=== PATIENT | male | born 1955 | race Caucasian/White ===

== ENCOUNTER 2021-12-16 12:43 | Emergency (ER) | payer MEDICARE, SELFPAY ==
--- NOTE | ~2021-12-16 | CT_ITS ---
EXAMINATION: CT brain wo con DATE: 12/16/2021 12:53 INDICATION: Right-sided weakness and confusion. TECHNIQUE: Computed tomography (CT) of the head was performed without intravenous contrast. The dose- length product was 605.33 mGy-cm. Automated exposure control and iterative reconstruction technique w ere employed. COMPARISON: None FINDINGS: No acute intracranial hemorrhage, infarction, mass or mass effect. No ventriculomegaly or m idline shift. There are scattered mild periventricular and subcortical white matter changes, most lik ritesh related to small vessel ischemic disease (microangiopathy). Paranasal sinuses and mastoids are pn eumatized. No depressed skull fractures. IMPRESSION: 1. No acute intracranial abnormality. As per stroke protocol, I called these results to emergency room, discussed with Dr. Placido luevano MD at 12/16/2021 12:58 CDT. Reviewed, dictated and finalized at location B. IMPRESSION: 1. No acute intracranial abnormality. As per stroke protocol, I called these results to emergency room, discussed wit h Dr. Placido Mercado MD at 12/16/2021 12:58 CDT.
--- NOTE | ~2021-12-16 | CT_ITS ---
EXAMINATION: CTA brain DATE: 12/16/2021 14:03 INDICATION: Right hemiparesis. TECHNIQUE: Computed tomographic angiography (CTA) of the head was performed with 100 mL Omnipaque-350 intravenous contrast. Automated exposure control and iterative reconstruction technique were employe d. The dose-length product was 629.14 mGy-cm. Maximum intensity projection 3D reconstructions were c reated. Volume-rendered 3D reconstructions of the intracranial arteries were created by the technolog ist on a separate workstation. COMPARISON: Head CT 12/16/2021 FINDINGS: There is no intracranial hemorrhage, acute infarction, or abnormal intracranial mass lesion . The ventricles are normal in size. There is mucosal thickening in the paranasal sinuses. The orbits are normal. The mastoid air cells are normal. Left vertebral artery is dominant. There is no signifi cant stenosis of basilar artery. Left P1 posterior cerebral artery segment is absent, a normal varian t. The posterior communicating arteries are normal. There is focal severe stenosis of left P2 posteri or cerebral artery. There is no significant stenosis of the intracranial internal carotid arteries or anterior or middle cerebral arteries. Anterior communicating artery is normal. IMPRESSION: 1. Focal severe stenosis of left P2 posterior cerebral artery. Reviewed, dictated and finalized at location A.
--- NOTE | ~2021-12-16 | XR_ITS ---
EXAMINATION: XR chest 1V portable INDICATION: Right-sided TECHNIQUE: Portable AP chest at 1326 hours COMPARISON: None available FINDINGS: The lungs are free of acute opacities. No pleural effusion or pneumothorax. The heart size is normal. Median sternotomy wires and mediastinal surgical clips are seen, likely from prior coronar y artery bypass grafting. IMPRESSION: 1. No acute cardiopulmonary abnormality. Reviewed, dictated and finalized at location A.
[2021-12-16 12:44] VITALS: BP 202/100; PULSE 85; RESP 15; TEMP 36.8; O2SAT 96
[2021-12-16 12:52] LABS: Glucose Point of Care 264 mg/dl (65-105)
[2021-12-16 12:59] LABS: Basophils Absolute Auto 0.06 K/mm3 (0.00-0.10); Basophils Percent Auto 0.8 % (0.0-1.0); Eosinophils Absolute Auto 0.05 K/mm3 (0.02-0.50); Eosinophils Percent Auto 0.6 % (1.0-6.0); Hematocrit 42.9 % (37.0-46.0); Hemoglobin 15.1 g/dL (12.4-15.3); Immature Granulocyte Absolute 0.05 K/mm3 (0.00-0.00); Immature Granulocyte Percent A 0.6 % (0.0-0.0); Lymphocytes Absolute Auto 1.39 K/mm3 (1.10-4.50); Lymphocytes Percent Auto 18.1 % (18.0-42.0); Mean Corpuscular HGB Conc 35.2 g/dL (32.0-36.0); Mean Corpuscular Hemoglobin 31.2 pg (27.0-31.0); Mean Corpuscular Volume 88.6 fL (78.0-102.0); Mean Platelet Volume 9.3 fl (8.7-11.0); Monocytes Absolute Auto 0.57 K/mm3 (0.10-0.90); Monocytes Percent Auto 7.4 % (2.0-11.0); Neutrophils Absolute Auto 5.6 K/mm3 (1.7-7.2); Neutrophils Percent Auto 72.5 % (50.0-70.0); Platelet Count Result 235 K/mm3 (150-420); Red Blood Count 4.84 M/mm3 (4.70-6.10); Red Cell Distribution Width 11.9 % (11.6-14.4); White Blood Count 7.7 K/mm3 (4.8-10.8)
--- NOTE | 2021-12-16 13:06 | ECG_ITS ---
Measurements Intervals [place] Rate: 81 P: 56 OR: 197 QRS: 39 QRSD: 84 T: 209 QT: 365 QTc: 424 Interpretive Statements SINUS RHYTHM ST-T WAVE ABNORMALITY IN ANTEROLATERAL LEADS- CONSIDER ISCHEMIA BASELINE ARTIFACT- I, III, AVL, V1 ABNORMAL ECG NO PREVIOUS ECG AVAILABLE FOR COMPARISON Electronically Signed On 12-16-2021 13:31:48 CDT by Marcel Fernandez D.O.
[2021-12-16 13:07] LABS: Prothrombin Time 10.8 Seconds (9.50-12.10)
[2021-12-16] MEDS: niCARdipine 20 MG/200 ML 20 MG/200 ML BAG 50 MG IV CONT (13:13)
[2021-12-16] MEDS: SODIUM CHLORIDE 0.9% IV 1,000 ML 100 ML (13:15)
[2021-12-16 13:19] LABS: Alanine Aminotransferase 33 U/L (16-63); Albumin Level 3.4 g/dL (3.4-5.0); Alkaline Phosphatase 78 U/L (46-116); Anion Gap 6 mmol/L (8-16); Aspartate Amino Transferase 20 U/L (15-37); Bilirubin,Total 0.6 mg/dL (0.00-1.00); Blood Urea Nitrogen 10 mg/dL (7-18); Calcium 8.8 mg/dL (8.5-10.1); Carbon Dioxide 31 mmol/L (21-32); Chloride 98 mmol/L (98-108); Creatine Kinase 179 U/L (39-308); Estimated Glomerular Filt Rate > 60; Ethanol < 3 mg/dL (0-6); Glucose 275 mg/dL (70-99); Osmolality Calculated 289 mOsm/kg (285-295); Potassium 3.8 mmol/L (3.5-5.1); Sodium 135 mmol/L (136-145)
[2021-12-16 13:20] LABS: Troponin I 597.7 ng/L (0.00-60.4)
--- NOTE | 2021-12-16 14:51 | ED.NEUROSD ---
HPI - Neuro Symptoms/Deficit General Chief Complaint: Suspected CVA Stated Complaint: ambulance Time Seen by Provider: 12/16/21 12:49 Related Data Home Medications Medication Instructions Recorded Confirmed Unable to Obtain Home Medications 12/16/21 12/16/21 Allergies Allergy/AdvReac Type Severity Reaction Status Date / Time iv contrast Allergy Unknown Uncoded 12/16/21 14:21 Course Vital Signs Vital signs: Vital Signs Temperature 36.8 C 12/16/21 12:44 Pulse Rate 85 12/16/21 12:44 Respiratory Rate 15 12/16/21 12:44 Blood Pressure 202/100 H 12/16/21 12:44 Pulse Oximetry 96 12/16/21 12:44 Oxygen Delivery Room Air 12/16/21 12:44 Temperature 36.8 C 12/16/21 12:44 Pulse Rate 85 12/16/21 12:44 Respiratory Rate 15 12/16/21 12:44 Blood Pressure 202/100 H 12/16/21 12:44 Pulse Oximetry 96 12/16/21 12:44 Oxygen Delivery Room Air 12/16/21 12:44 MDM - Neuro Symptoms/Deficit Lab Data Result diagrams: 12/16/21 12:53 12/16/21 12:53 Labs: Lab Results 12/16/21 12/16/21 12/16/21 Range/Units 12:47 12:53 12:53 WBC 7.7 (4.8-10.8) K/mm3 RBC 4.84 (4.70-6.10) M/mm3 Hgb 15.1 (12.4-15.3) g/dL Hct 42.9 (37.0-46.0) % MCV 88.6 (78.0-102.0) fL MCH 31.2 H (27.0-31.0) pg MCHC 35.2 (32.0-36.0) g/dL RDW 11.9 (11.6-14.4) % Plt Count 235 (150-420) K/mm3 MPV 9.3 (8.7-11.0) fl Immature Gran % (Auto) 0.6 H (0.0-0.0) % Neut % (Auto) 72.5 H (50.0-70.0) % Lymph % (Auto) 18.1 (18.0-42.0) % [place] % (Auto) 7.4 (2.0-11.0) % Eos % (Auto) 0.6 L (1.0-6.0) % Baso % (Auto) 0.8 (0.0-1.0) % Lymph # (Auto) 1.39 (1.10-4.50) K/mm3 [place] # (Auto) 0.57 (0.10-0.90) K/mm3 Eos # (Auto) 0.05 (0.02-0.50) K/mm3 Baso # (Auto) 0.06 (0.00-0.10) K/mm3 Abs Immat Gran (auto) 0.05 H (0.00-0.00) K/mm3 Absolute Neuts (auto) 5.6 (1.7-7.2) K/mm3 Absolute Nucleated RBC 0.00 (0.00-0.00) K/mm3 Nucleated RBC % 0.0 (0-0.0) % PT (9.50-12.10) Seconds INR APTT (23.90-30.70) SEC Sodium 135 L (136-145) mmol/L Potassium 3.8 (3.5-5.1) mmol/L Chloride 98 (98-108) mmol/L Carbon Dioxide 31 (21-32) mmol/L Anion Gap 6 L (8-16) mmol/L BUN 10 (7-18) mg/dL Creatinine 0.85 (0.70-1.30) mg/dL Estim Creat Clear Calc Not Reportable Estimated GFR > 60 (59 - ) Glucose 275 H (70-99) mg/dL POC Capillary Glucose 264 H (65-105) mg/dl Calculated Osmolality 289 (285-295) mOsm/kg Calcium 8.8 (8.5-10.1) mg/dL Total Bilirubin 0.6 (0.00-1.00) mg/dL AST 20 (15-37) U/L ALT 33 (16-63) U/L Alkaline Phosphatase 78 (46-116) U/L Total Creatine Kinase 179 (39-308) U/L CK-MB (CK-2) 1.70 (0.00-5.00) ng/mL Troponin I 597.7 H* (0.00-60.4) ng/L Total Protein 7.0 (6.4-8.2) g/dL Albumin 3.4 (3.4-5.0) g/dL Ethyl Alcohol (0-6) mg/dL 12/16/21 12/16/21 Range/Units 12:53 12:53 WBC (4.8-10.8) K/mm3 RBC (4.70-6.10) M/mm3 Hgb (12.4-15.3) g/dL Hct (37.0-46.0) % MCV (78.0-102.0) fL MCH (27.0-31.0) pg MCHC (32.0-36.0) g/dL RDW (11.6-14.4) % Plt Count (150-420) K/mm3 MPV (8.7-11.0) fl Immature Gran % (Auto) (0.0-0.0) % Neut % (Auto) (50.0-70.0) % Lymph % (Auto) (18.0-42.0) % [place] % (Auto) (2.0-11.0) % Eos % (Auto) (1.0-6.0) % Baso % (Auto) (0.0-1.0) % Lymph # (Auto) (1.10-4.50) K/mm3 [place] # (Auto) (0.10-0.90) K/mm3 Eos # (Auto) (0.02-0.50) K/mm3 Baso # (Auto) (0.00-0.10) K/mm3 Abs Immat Gran (auto) (0.00-0.00) K/mm3 Absolute Neuts (auto) (1.7-7.2) K/mm3 Absolute Nucleated RBC (0.00-0.00) K/mm3 Nucleated RBC % (0-0.0) % PT 10.8 (9.50-12.10) Seconds INR 1.0 APTT 27.0 (23.90-30.70) SEC Sodium (136-145) mmol/L Potassium (3.5-5.1) mmol/L Chloride (98-108) mmol/L Carbon Dioxide (
--- NOTE | 2021-12-16 14:51 | ED.NEUROSD ---
HPI - Neuro Symptoms/Deficit General Chief Complaint: Suspected CVA Stated Complaint: ambulance Time Seen by Provider: 12/16/21 12:49 Source: patient and EMS Mode of arrival: EMS Limitations: language barrier History of Present Illness HPI Narrative: this is a 66-year-old gentleman that called family and stated that he was having slurred speech with right arm weakness and a right facial droop started about 11:00 a.m. in the morning, patient has a history of diabetes hypertension and CAD with 2 stents placed. Currently no chest pain no abdominal pain blood pressure was initially 239 systolic with no nausea vomiting. Timing confirmed by: family member Location: speech, right face, dysarthria and right arm Severity: severe Related Data Home Medications Medication Instructions Recorded Confirmed Unable to Obtain Home Medications 12/16/21 12/16/21 Allergies Allergy/AdvReac Type Severity Reaction Status Date / Time iv contrast Allergy Unknown Uncoded 12/16/21 14:21 Review of Systems Review of Systems: All systems reviewed & are unremarkable except as noted in HPI and below PMFSH Past Medical History Medical History Diabetes mellitus Exam Const: General: healthy appearing and ill appearing Limitations: altered mental status HENMT: Head: normal to inspection Face and sinus: normal facial exam Mouth: Yes Normal oral and palatal mucosa present Eyes: Conjunctivae: conjunctivae normal Pupils: Equal, round and reactive pupils present EOM: EOMs intact bilaterally Chest: Chest palpation & inspection: normal inspection of the chest Resp: Effort & Inspection: normal respiratory effort Auscultation: clear to auscultation bilaterally Cardio: Rate: regular rate Rhythm: regular rhythm GI: GI Palp: Yes Soft to palpation Auscultation: normal bowel sounds : General: Yes bladder normal to palpation Urinary Catheter: Urinary Catheter: patent and draining Back/Spine/Pelvis: Back: no CVA tenderness Skin: General skin exam: normal color Rashes: no rashes Wounds: no wounds Neuro: General: patient oriented x3 Speech: Abnormal speech present Extrem: General: normal to inspection and no clubbing, cyanosis or edema Psych: Mental Status: mental status grossly normal Affect: normal affect Course Course Emergency Course: patient with a [place] Stroke Scale with slurred speech and right facial droop and right arm weakness his NIH stroke scale as 6, the patient had initial blood pressure of 239 systolic started on nicardipine drip and currently blood pressure 180/80 patient also received tPA, patient had CTA performed which showed no focal severe stenosis of the left posterior cerebral artery. Patient had a CT scan when he 1st arrived which showed no acute hemorrhage. [facility] been called and acceptance to [facility] for stroke. Vital Signs Vital signs: Vital Signs Temperature 36.8 C 12/16/21 12:44 Pulse Rate 85 12/16/21 12:44 Respiratory Rate 15 12/16/21 12:44 Blood Pressure 202/100 H 12/16/21 12:44 Pulse Oximetry 96 12/16/21 12:44 Oxygen Delivery Room Air 12/16/21 12:44 Temperature 36.8 C 12/16/21 12:44 Pulse Rate 85 12/16/21 12:44 Respiratory Rate 15 12/16/21 12:44 Blood Pressure 202/100 H 12/16/21 12:44 Pulse Oximetry 96 12/16/21 12:44 Oxygen Delivery Room Air 12/16/21 12:44 Transfer Transportation: Air medical Transfer rationale: Further evaluation treatment from Neurology MDM - Neuro Symptoms/Deficit Lab Data Result diagrams: 12/16/21 12:53 12/16/21 12:53 Labs: Lab Results 12/16/21 12/16/21 12/16/21 Range/Units 12:47 12:53 12:53 WBC 7.7 (4.8-10.8) K/mm3 RBC 4.84 (4.70-6.10) M/mm3 Hgb 15.1 (12.4-15.3) g/dL Hct 42.9 (37.0-46.0) % MCV 88.6 (78.0-102.0) fL MCH 31.2 H (27.0-31.0) pg MCHC 35.2 (32.0-36.0)
[2021-12-16 14:55] VITALS: BP 175/85; PULSE 88; RESP 16; O2SAT 98
[2021-12-16 15:00] VITALS: BP 202/100; PULSE 85; RESP 15
== END 2021-12-16 15:05 | disposition short-term general hospital (02) ==
PROVIDERS: Emergency Provider Emergency Medicine
DX: I63.9 Cerebral infarction, unspecified (principal); E11.9 Type 2 diabetes mellitus without complications; I25.10 Atherosclerotic heart disease of native coronary artery without angina pectoris
CPT/HCPCS: 36415; 70450; 70496; 71045; 80053; 80307; 82550; 82553; 82948; 84484; 85025; 85610; 85730; 93005; 96365; 96366; 99285; J2997; J7030; Q9967

== ENCOUNTER 2023-09-25 14:26 | Outpatient (CLI) | payer MEDICARE, SELFPAY ==
--- NOTE | ~2023-09-25 | MR_ITS ---
EXAMINATION: MR pelvis wo/w con DATE: 09/25/2023 16:07 INDICATION: Malignant neoplasm of prostate. TECHNIQUE: Magnetic resonance imaging (MRI) of the pelvis was performed without and with 20 mL MultiH ance intravenous contrast. COMPARISON: None. FINDINGS: There is a right inguinal hernia containing fat. The prostate is mildly enlarged. There is a gel spac er between the rectum and prostate. There are no pathologically enlarged lymph nodes. There is no anshu e intraperitoneal fluid. There is diffuse bladder wall thickening, likely secondary to chronic outlet obstruction. There is no osseous malignancy. IMPRESSION: 1. Mildly enlarged prostate. No evidence of metastatic disease. Reviewed, dictated and finalized at location E.
== END 2023-09-25 14:27 | disposition home or self-care (01) ==
LOC: ANHIMG 14:29
PROVIDERS: Visit Provider Radiology Radiation Oncology
DX: C61 Malignant neoplasm of prostate (principal)
CPT/HCPCS: 72197; A9577

== ENCOUNTER 2023-09-30 07:41 | Outpatient (CLI) | payer MEDICARE, SELFPAY ==
--- NOTE | ~2023-09-30 | DEXA_ITS ---
Bone Density Report Name: FAYE HA Age: 68 Sex: Male Ethnicity: White Date of : 1955 Indication: history of glucocorticoids; cancer; Referring Provider: MIGUE YODER Study: Bone densitometry was performed. Exam Date: September 30, 2023 Accession number: [id number] Bone Density: Region BMD T-score Z-score Classification AP Spine(L1-L4) 1.344 2.3 3.1 Normal Femoral Neck (Left) 0.979 0.4 1.5 Normal Total Hip (Left) 1.187 1.0 1.6 Normal Femoral Neck (Right) 0.961 0.2 1.4 Normal Total Hip (Right) 1.126 0.6 1.2 Normal Total Hip Mean 1.157 0.8 1.4 Normal World Health Organization criteria for BMD impression classify patients as: Normal (T-score at or above -1.0), Osteopenia (T-score between -1.0 and -2.5), or Osteoporosis (T-score at or below -2.5). 10-year Fracture Risk: FRAX not reported because: All T-scores for Spine Total, Hip Total, Femoral Neck at or above -1.0 Clinical Information Provided by Patient: Has taken Glucocorticoids Has used the following medications: Vitamin D Has the following medical conditions: Cancer Patient maximum height was 74 No regular weight bearing exercise Impression: The patient has normal bone mass. The patient has risk factors, including: history of glucocorticoid therapy. Discussion: BONE DENSITY IS ABOVE THE MINIMUM DESIRABLE LEVEL AT ALL SKELETAL SITES TESTED. This patient?s bone mineral density is above the minimum desirable level (T-score -1.0 or better) at all sites measured. The patient should follow a healthful lifestyle (good nutrition with adequate calcium and vitamin D, and appropriate weight-bearing exercise). Follow-Up: Consider repeating this study in 5 years or sooner if there is some new clinical indication. Reported by: YE on 09/30/2023 8:17:00 AM. Reviewed, dictated and finalized at location A.
== END 2023-09-30 07:42 | disposition home or self-care (01) ==
LOC: ANHIMG 07:43
PROVIDERS: Visit Provider Urology
DX: M81.0 Age-related osteoporosis without current pathological fracture (principal)
CPT/HCPCS: 77080